=== PATIENT | female | born 1950 | race Caucasian/White ===

== ENCOUNTER 2022-09-03 10:01 | Day surgery (SDC) | payer MEDICARE, OTHER ==
[2022-09-03] MEDS ORDERED: Sodium Chloride 0.9(Preservative Free) 10 ML IJ ONE (10:02)
[2022-09-03] MEDS ORDERED: Depo-Medrol 40 MG/ML IM ONE (10:02)
[2022-09-03] MEDS ORDERED: DIPRIVAN 200 MG/20 ML IV ONE (11:44)
[2022-09-03] MEDS ORDERED: Lactated Ringers 1,000 ML IV ONE (15:04)
--- NOTE | 2022-09-03 19:12 | XRAY ---
Indication: Left L3-L5 transforaminal SHERIE. Intraoperative fluoroscopy provided for 41 seconds. 4 digital spot image submitted for interpretation demonstrates posterior needle tips projecting over the expected left L3 and L4 nerve roots. Small amount of contrast injected for needle tip placement. Correlate with intraoperative findings/report. Incidental bilateral L3-L5 posterior fusion hardware.
--- NOTE | 2022-09-03 19:25 | XRAY ---
41 seconds of fluoroscopy was used in surgery for a left L3-L5 transforaminal SHERIE.
== END 2022-09-03 12:15 | disposition home or self-care (01) ==
LOC: SDC-PAIN 10:01
PROVIDERS: ATTEND Psychiatry & Neurology Pain Medicine
DX: M54.16 Radiculopathy, lumbar region (principal); Z79.899 Other long term (current) drug therapy
CPT/HCPCS: 64483; 64484; 72100; 77003; J1030; J2704; Q9966

== ENCOUNTER 2023-04-22 13:55 | Day surgery (SDC) | payer MEDICARE, OTHER ==
[2023-04-22] MEDS ORDERED: BUPIVACAINE 0.5% VIAL IJ ONE (13:56)
[2023-04-22] MEDS ORDERED: Depo-Medrol 40 MG/ML IM ONE (13:56)
[2023-04-22] MEDS ORDERED: Lactated Ringers 1,000 ML IV ONE (17:07)
[2023-04-22] MEDS ORDERED: DIPRIVAN 200 MG/20 ML IV ONE (17:08)
--- NOTE | 2023-04-22 20:22 | XRAY ---
Indication: Bilateral hip injection Intraoperative fluoroscopy provided for 32 seconds. 4 digital spot image submitted for interpretation demonstrates needle tip projecting lateral to left and right femur necks. Small amount of contrast injected for both needle tip placement. Correlate with intraoperative findings/report.
--- NOTE | 2023-04-23 09:36 | XRAY ---
32 seconds of fluoroscopy was used in surgery for a bilateral intra-articular hip injection.
== END 2023-04-22 17:45 | disposition home or self-care (01) ==
LOC: SDC-PAIN 13:55
PROVIDERS: ATTEND Psychiatry & Neurology Pain Medicine
DX: M16.0 Bilateral primary osteoarthritis of hip (principal)
CPT/HCPCS: 20610; 73521; 77002; J1030; J2704; Q9966

== ENCOUNTER 2023-05-20 15:11 | Day surgery (SDC) | payer MEDICARE, OTHER ==
[2023-05-20] MEDS ORDERED: XYLOCAINE-MPF 1% 5ML SDV IJ ONE (15:12)
[2023-05-20] MEDS ORDERED: Depo-Medrol 40 MG/ML IM ONE (15:12)
[2023-05-20] MEDS ORDERED: BUPIVACAINE 0.5% VIAL IJ ONE (15:12)
--- NOTE | 2023-05-20 20:11 | XRAY ---
Indication: Bilateral SI joint injection. Intraoperative fluoroscopy provided for 16 seconds. 4 digital spot image submitted for interpretation demonstrates posterior needle tip projecting over the left and right SI joint. Correlate with intraoperative findings/report. Incidental incompletely visualized lower lumbar fusion hardware.
--- NOTE | 2023-05-21 12:03 | XRAY ---
16 seconds of fluoroscopy was used in surgery for a bilateral sacroiliac joint injection.
== END 2023-05-20 17:40 | disposition home or self-care (01) ==
LOC: SDC-PAIN 15:11
PROVIDERS: ATTEND Psychiatry & Neurology Pain Medicine
DX: M46.1 Sacroiliitis, not elsewhere classified (principal)
CPT/HCPCS: 27096; 72202; 77002; J1030; Q9966; G0260